=== PATIENT | male | born 1980 | race Two or more races ===

== ENCOUNTER 2024-01-09 21:02 | Inpatient (IN) | payer OTHER ==
[~2024-01-09] VITALS: Ht 170.2 cm; Wt 75.7 kg
[2024-01-09] MEDS ORDERED: JANUMET 50-5001 EACH PO (21:25)
[2024-01-09] MEDS ORDERED: TOPROL XL25 M1 (21:25)
[2024-01-09] MEDS ORDERED: VALSARTAN80 MG PO (21:26)
[2024-01-09] MEDS ORDERED: ACETAMINOPHEN 500 MG GEL..CAP PO ONE (22:00)
[2024-01-09 22:07] LABS: HEMATOCRIT 42.7 % (39.0-48.0); HEMOGLOBIN 14.5 g/dL (13-16.00); MEAN CELL VOLUME 95.4 fL (80.0-100.00); MEAN CORPUSCULAR HEMOGLOBIN 32.4 pg (27.00-32.0); MEAN CORPUSCULAR HGB CONC 33.9 g/dl (32.0-36.0); PLATELET COUNT 268 K/uL (150-450); RED BLOOD COUNT 4.48 M/uL (4.00-6.00); RED CELL DISTRIBUTION WIDTH 13.5 % (11.5-14.5)
[2024-01-09 22:10] LABS: PH,URINE 6.5 (5.0-8.0); URINE APPEARANCE Clear; URINE BILIRRUBIN Negative (NEGATIVE); URINE BLOOD Negative; URINE COLOR Yellow; URINE KETONE Trace (NEGATIVE); URINE LEUKOCYTE Trace; URINE NITRATE Negative; URINE PROTEIN Negative (NEGATIVE); URINE UROBILINOGEN 0.2 E.U./dl
[2024-01-09 22:11] LABS: URINE BACTERIA 9018.8 uL (0.0-1933); URINE EPITHELIAL CELLS 26.4 uL (0.0-38.8); URINE RBC 7.9 uL (0.0-20.8); URINE WBC 204.5 uL (0.0-23.2)
[2024-01-09 22:30] LABS: URINE GLUCOSE >=1000 MG/DL (NEGATIVE); URINE MUCUS SCANT
[2024-01-09] MEDS ORDERED: 0.9 % SODIUM CHLORIDE 1,000 ML IV SCH (22:30)
[2024-01-09] MEDS ORDERED: levoFLOXacin IN DEXTROSE 5 % 5 MG/ML PIGGYBAG IV ONE (22:30)
[2024-01-10 00:07] LABS: ALBUMIN 3.8 gm/dL (3.4-5.0); BILIRUBIN TOTAL 1.27 mg/dL (0.3-1.2); CALCIUM 9.5 mg/dL (8.5-10.1); CREATININE SERUM 0.93 mg/dL (0.70-1.30); GFR 89.54; GLOBULINA 3.7 G/DL (2.4-3.5); POTASSIUM 4.3 mEq/L (3.5-5.1); TOTAL PROTEIN 7.5 gm/dL (6.4-8.2)
[2024-01-10 00:15] LABS: PROSTATIC SPECIFIC ANTIGEN 6.11 NG/ML (0.010-4.00)
[2024-01-10] MEDS ORDERED: 0.9 % SODIUM CHLORIDE 1,000 ML IV SCH (01:00)
[2024-01-10] MEDS ORDERED: DEXTROSE 50 % IN WATER 0.5 G/ML DISP.SYRIN IV PRN (01:00)
[2024-01-10] MEDS ORDERED: INSULIN LISPRO 1,000 UNIT/10 ML UNITS SUBCUTANEO PRN (01:00)
[2024-01-10] MEDS ORDERED: ACETAMINOPHEN 500 MG GEL..CAP PO PRN (01:15)
[2024-01-10] MEDS ORDERED: ONDANSETRON HCL 4 MG in 0.9 % SODIUM CHLORIDE 50 ML IV PRN (01:15)
[2024-01-10] MEDS ORDERED: MORPHINE SULFATE 4 MG/ML VIAL IV PRN (01:15)
[2024-01-10] MEDS ORDERED: hydrALAZINE HCL 20 MG VIAL IV PRN (01:15)
[2024-01-10 02:29] VITALS: BP 120/82; O2SAT 99
[2024-01-10 06:05] VITALS: BP 127/74; O2SAT 97
[2024-01-10 08:44] VITALS: BP 110/76; O2SAT 97
[2024-01-10] MEDS ORDERED: METOPROLOL SUCCINATE 25 MG TAB.SR.24H PO SCH (09:00)
[2024-01-10] MEDS ORDERED: ENOXAPARIN SODIUM 40 MG/0.4 ML SYRINGE SUBCUTANEO SCH (09:00)
[2024-01-10] MEDS ORDERED: FAMOTIDINE/PF 20 MG in 0.9 % SODIUM CHLORIDE 8 ML IV PUSH SCH (09:00)
[2024-01-10] MEDS ORDERED: VALSARTAN 80 MG PO SCH (09:00)
[2024-01-10] MEDS ORDERED: levoFLOXacin IN DEXTROSE 5 % 150 ML IV SCH (11:12)
[2024-01-10] MEDS ORDERED: MORPHINE SULFATE 4 MG/ML CARTRIDGE IV PRN (15:30)
[2024-01-10 16:00] VITALS: BP 136/81; O2SAT 98
[2024-01-11 01:22] VITALS: BP 120/74; O2SAT 97
[2024-01-11 08:09] LABS: HEMATOCRIT 39.4 % (39.0-48.0); HEMOGLOBIN 13.6 g/dL (13-16.00); MEAN CELL VOLUME 93.6 fL (80.0-100.00); MEAN CORPUSCULAR HEMOGLOBIN 32.2 pg (27.00-32.0); MEAN CORPUSCULAR HGB CONC 34.4 g/dl (32.0-36.0); PLATELET COUNT 258 K/uL (150-450); RED BLOOD COUNT 4.21 M/uL (4.00-6.00); RED CELL DISTRIBUTION WIDTH 13.6 % (11.5-14.5)
[2024-01-11 08:10] LABS: PH,URINE 5.5 (5.0-8.0); URINE APPEARANCE Clear; URINE BILIRRUBIN Negative (NEGATIVE); URINE BLOOD Negative; URINE COLOR Yellow; URINE GLUCOSE Negative (NEGATIVE); URINE KETONE Negative (NEGATIVE); URINE LEUKOCYTE Negative; URINE NITRATE Negative; URINE PROTEIN Negative (NEGATIVE); URINE UROBILINOGEN 0.2 E.U./dl
[2024-01-11 08:15] LABS: URINE EPITHELIAL CELLS 4.1 uL (0.0-38.8); URINE RBC 4.4 uL (0.0-20.8); URINE WBC 48.8 uL (0.0-23.2)
[2024-01-11 08:23] LABS: INR 1.05; PARTIAL THROMBOPLASTIN TIME 31.6 SECONDS (22.0-34.0); PROTHROMBIN TIME 11.4 SECONDS (9.0-11.5)
[2024-01-11 08:33] LABS: ALBUMIN 3.5 gm/dL (3.4-5.0); BILIRUBIN TOTAL 1.89 mg/dL (0.3-1.2); BILIRUBIN,CONJUGATED 0.34 mg/dL (0.0-0.2); BILIRUBIN,UNCONJUGATED 1.55 mg/dL (0.0-0.6); CALCIUM 8.9 mg/dL (8.5-10.1); CHOL HDL RATIO 2.9 (0-5.0); CREATININE SERUM 0.9 mg/dL (0.70-1.30); GFR 92.99; GLOBULINA 3.7 G/DL (2.4-3.5); POTASSIUM 4.01 mEq/L (3.5-5.1); TOTAL PROTEIN 7.2 gm/dL (6.4-8.2)
[2024-01-11 08:40] LABS: ERYTHROCYTE SEDIMENTATION RATE 27 mm/hr
[2024-01-11 08:48] LABS: C-REACTIVE PROTEIN 8.73 MG/DL (0.00-0.29)
[2024-01-11 09:07] VITALS: BP 125/86; O2SAT 96
[2024-01-11] MEDS ORDERED: TAMSULOSIN HCL 0.4 MG CAP PO SCH (17:00)
[2024-01-11 17:02] VITALS: BP 142/80; O2SAT 98
[2024-01-12 01:09] VITALS: BP 104/71; O2SAT 96
[2024-01-12 08:06] LABS: HEMATOCRIT 37.8 % (39.0-48.0); HEMOGLOBIN 12.8 g/dL (13-16.00); MEAN CELL VOLUME 94.5 fL (80.0-100.00); MEAN CORPUSCULAR HGB CONC 33.9 g/dl (32.0-36.0); PLATELET COUNT 256 K/uL (150-450); RED CELL DISTRIBUTION WIDTH 13.5 % (11.5-14.5)
[2024-01-12 08:53] VITALS: BP 124/90; O2SAT 98
[2024-01-12 17:00] VITALS: BP 117/86; O2SAT 96
[2024-01-13 00:54] VITALS: BP 111/71
[2024-01-13 09:00] VITALS: BP 128/85; O2SAT 98
== END 2024-01-13 09:47 | disposition home or self-care (01) | DRG 690 ==
LOC: ER 21:04 → MEDJ 01-10 01:18
PROVIDERS: General Practice; ADMIT Internal Medicine; ATTEND Internal Medicine
PROC: BW21YZZ Computerized Tomography (CT Scan) of Abdomen and Pelvis using Other Contrast (ICD-10-PCS; principal; 2024-01-10)
DX: N39.0 Urinary tract infection, site not specified (principal); N41.0 Acute prostatitis; I10 Essential (primary) hypertension; E11.9 Type 2 diabetes mellitus without complications; Z79.4 Long term (current) use of insulin